=== PATIENT | female | born 1975 | race Caucasian/White ===

== ENCOUNTER 2017-08-15 02:14 | Emergency (ER) | payer BC, SELFPAY ==
[2017-08-15 02:16] VITALS: BP 148/88; PULSE 92; RESP 15; TEMP 36.6; O2SAT 100; BMI 46.7
--- NOTE | 2017-08-15 02:49 | EKG12_ITS ---
Test Reason : ABDOMINAL PAIN Blood Pressure : / mmHG Vent. Rate : 079 BPM Atrial Rate : 079 BPM P-R Int : 132 ms QRS Dur : 094 ms QT Int : 382 ms P-R-T Axes : -03 024 039 degrees QTc Int : 438 ms Normal sinus rhythm Inferior infarct , age undetermined Abnormal ECG Reconfirmed by XOCHILT CHANG, OUSMANE ([id number]), non linear editor BRETT LEWIS ([id number]) on 08/18/2017 1:50:15 PM Referred By: DR AZIDI Confirmed By:OUSMANE LEMON MD
--- NOTE | 2017-08-15 02:50 | ED.VISSUMM ---
- ER Visit Summary Date of Service: 08/15/17 Chief Complaint: Upper abdominal pain History of Present Illness: The patient is a 41 F past medical history of sleep apnea for which she wears BiPAP and pseudotumor. Previously had a brain shunt but then that since had that removed. Patient states the last 4 days or so turning Tuesday morning she has had gradual intermittent epigastric upper abdominal pain. Associated nausea but no vomiting. No diarrhea, constipation or melena. No fever. No dysuria. No vaginal bleeding or discharge. She still has both her gallbladder and appendix. She denies any trauma. States the pains been intermittent. Nothing specifically makes it better or worse. No prior history of pain like this before. No significant weight change recently. She denies any chest pain or exertional chest pain or exertional shortness of breath. Physical Examination: Well-appearing middle-age female vital signs are stable afebrile. Pulse ox 100% on room air no signs of hypoxia. HEENT exam unremarkable. Moist mucous membranes. Neck nontender no lymphadenopathy. Lungs clear to auscultation bilaterally. Heart regular rate and rhythm no murmur. Chest wall nontender. Abdomen is soft mild midepigastric tenderness. No rebound or guarding. No rigidity. No hernias or masses. Nondistended. Soft positive bowel sounds. No Ramirez sign. No specific right upper quadrant or McBurney's point tenderness. No Ramirez sign. Moving all 4 extremities. Neurovascularly intact. Calves nontender without edema or cords. Back exam nontender. Neurologically she is awake and alert without focal motor deficits. Test Results: CBC shows a white count of 10 H&H 10.5 and 33 with no prior hemoglobins available for comparison. Electrolytes unremarkable normal BUN and creatinine and gap. Liver enzymes normal. Lipase normal 140. Troponin normal. 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 However she has no cardiac history and had a negative troponin tonight. CT abdomen and pelvis done with IV contrast only shows one single solitary gallstone. There is also a left renal stone. And a 6.3 cm right adnexal mass versus cyst. I discussed all these test results with the patient and she will follow-up with her [employer]INER [facility] here at [place] for further evaluation of a potential right adnexal mass or cyst. Emergency Department Course and Treatment: Patient was nondescript abdominal pain. She does not want anything currently for pain or nausea. Treatment Plan: On repeat exam patient is doing well at 0602. She was given 1 dose of morphine and Zofran. Her pain is resolved. She will be discharged home with follow-up with Dr. Bubba Munson of the [facility] for further evaluation of this gallstone and abdominal pain. Follow-up with her [facility] SH[employer] DOG TRAINER for further evaluation of the right adnexal cyst or mass. Disposition: Discharge Impression: Acute abdominal pain Incidental finding of single solitary gallstone on CAT scan. Incidental finding of right adnexal cyst or mass which will need further evaluation. This note was generated with [employer] dictation software. It may contain incorrect words, spelling, and punctuation that were not noted in review of the chart prior to signing ED Disposition - Plan for ED Patient: Chief Complaint: Abd Pain Referrals: Taty Wong MD [Primary Care Provider] -
--- NOTE | 2017-08-15 02:53 | ED.DCSUM_ITS ---
- ER Visit Summary Date of Service: 08/15/17 Chief Complaint: Upper abdominal pain History of Present Illness: The patient is a 41 F past medical history of sleep apnea for which she wears BiPAP and pseudotumor. Previously had a brain shunt but then that since had that removed. Patient states the last 4 days or so turning Tuesday morning she has had gradual intermittent epigastric upper abdominal pain. Associated nausea but no vomiting. No diarrhea, constipation or melena. No fever. No dysuria. No vaginal bleeding or discharge. She still has both her gallbladder and appendix. She denies any trauma. States the pains been intermittent. Nothing specifically makes it better or worse. No prior history of pain like this before. No significant weight change recently. She denies any chest pain or exertional chest pain or exertional shortness of breath. Physical Examination: Well-appearing middle-age female vital signs are stable afebrile. Pulse ox 100% on room air no signs of hypoxia. HEENT exam unremarkable. Moist mucous membranes. Neck nontender no lymphadenopathy. Lungs clear to auscultation bilaterally. Heart regular rate and rhythm no murmur. Chest wall nontender. Abdomen is soft mild midepigastric tenderness. No rebound or guarding. No rigidity. No hernias or masses. Nondistended. Soft positive bowel sounds. No Ramirez sign. No specific right upper quadrant or McBurney's point tenderness. No Ramirez sign. Moving all 4 extremities. Neurovascularly intact. Calves nontender without edema or cords. Back exam nontender. Neurologically she is awake and alert without focal motor deficits. Test Results: CBC shows a white count of 10 H&H 10.5 and 33 with no prior hemoglobins available for comparison. Electrolytes unremarkable normal BUN and creatinine and gap. Liver enzymes normal. Lipase normal 140. Troponin normal. 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 However she has no cardiac history and had a negative troponin tonight. CT abdomen and pelvis done with IV contrast only shows one single solitary gallstone. There is also a left renal stone. And a 6.3 cm right adnexal mass versus cyst. I discussed all these test results with the patient and she will follow-up with her [employer] SUPERVISOR [facility] here at [place] for further evaluation of a potential right adnexal mass or cyst. Emergency Department Course and Treatment: Patient was nondescript abdominal pain. She does not want anything currently for pain or nausea. Treatment Plan: On repeat exam patient is doing well at 0602. She was given 1 dose of morphine and Zofran. Her pain is resolved. She will be discharged home with follow-up with Dr. Bubba Munson of the [facility] for further evaluation of this gallstone and abdominal pain. Follow-up with her [facility] GLAZIER SUPERVISOR for further evaluation of the right adnexal cyst or mass. Disposition: Discharge Impression: Acute abdominal pain Incidental finding of single solitary gallstone on CAT scan. Incidental finding of right adnexal cyst or mass which will need further evaluation. This note was generated with [employer] dictation software. It may contain incorrect words, spelling, and punctuation that were not noted in review of the chart prior to signing ED Disposition - Plan for ED Patient: Chief Complaint: Abd Pain Referrals: Taty Wong MD [Primary Care Provider] -
--- NOTE | 2017-08-15 02:53 | NURSING ---
NO OLD EKG'S IN MUSE
[2017-08-15 03:20] LABS: Absolute Lymphocyte Count 2.38 X10^3/ul (0.83-4.51); Absolute Neutrophil Count 7.5 X10^3/uL (2.0-7.7); Basophil# 0.02 X10^3/uL; Basophil% 0.2 % (0-1); Eosinophil# 0.14 X10^3/uL; Eosinophils% 1.3 % (0-5); Hematocrit 33.5 % (37-47); Hemoglobin 10.5 g/dl (12.0-15.0); Lymphocyte # 2.38 X10^3/ul (4.0); Lymphocyte % 21.9 % (19-41); Mean Corp Hgb Conc 31.3 g/gl (32-36); Mean Corpuscular Hgb 24.8 pg (27.0-32.0); Mean Corpuscular Volume 79.2 fL (81-99); Monocyte% 7.4 % (0-10); Neutrophil # 7.52 X10^3/uL (2.7-7.7); Platelet Count 345 K/mm3 (150-450); RBC Distribution Width CV 18.2 % (11.6-14.6); RBC Distribution Width SD 51.2 fl (35.1-43.9); Red Blood Count 4.23 M/mm3 (4.2-5.4); White Blood Count 10.9 K/mm3 (4.4-11.0)
[2017-08-15 03:22] LABS: POSITIVE COUNT NO; POSITIVE DIFFERENTIAL NO; POSITIVE MORPHOLOGY NO
[2017-08-15 03:36] LABS: AST(SGOT) 8 U/L (15-37); Alanine Aminotransfer ALT/SGPT 24 U/L (13-56); Albumin, Serum 3.1 g/dL (3.2-5.0); Alkaline Phosphatase 76 U/L (45-117); Anion Gap 8 (5-15); BUN 12 mg/dL (7-18); BUN/Creat Ratio 18.3 RATIO (10-20); Bilirubin, Direct 0.09 mg/dL (0.00-0.30); Calcium,Total 8.1 mg/dL (8.5-10.1); Chloride 109 mmol/L (98-107); Creatinine, Serum 0.66 mg/dL (0.55-1.02); EST Glomerular Filtration Rate 106 mL/min (>60); Est Glom Filt Rate - Afr Amer 128 mL/min (>60); Globulin 3.6 g/dL (2.2-4.2); Glucose 121 mg/dL (74-106); Lipase 140 U/L (73-393); Potassium 3.5 mmol/L (3.5-5.1); Protein, Total 6.7 g/dL (6.4-8.2); Sodium Level 140 mmol/L (136-145)
[2017-08-15 04:15] VITALS: PULSE 98; RESP 16
--- NOTE | 2017-08-15 04:26 | CT_ITS ---
STUDY: CT ABDOMEN AND PELVIS WITH CONTRAST REASON FOR EXAM: Female, 41 years old. Mid abdominal pain with nausea 3 days. 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 RADIATION DOSAGE (If Supplied By Facility): CTDIvol = ( 17.07 ) mGy, DLP = ( 1388.35 ) mGycm TECHNIQUE: Transaxial images were obtained from the dome of the diaphragm to the symphysis pubis without oral contrast. 100ML ml of Isovue 300 contrast was administered. Sagittal and coronal images were reconstructed. Individualized dose optimization techniques were used for this CT. COMPARISON: None. FINDINGS: The visualized lung bases are unremarkable. The visualized portions of the heart are within normal limits. Normal liver. There is a 0.8 cm solitary gallstone. Normal spleen. Normal pancreas. Normal bilateral adrenal glands. Normal right kidney. Multiple nonobstructing inferior pole left renal calculi the largest measuring 0.5 cm. Normal visualized stomach. Normal small intestine. Normal colon. It is possible the appendix is seen on coronal image 64 with the distal aspect of the appendix adjacent to the right adnexal mass. Several subcentimeter lymph nodes right lower quadrant. Terminal ileum is normal. Normal abdominal aorta. Normal inferior vena cava. Normal retroperitoneum. No intra-abdominal free air. Normal urinary bladder. Uterus is grossly normal. In the region of the right adnexa is a 6.3 x 3.3 x 4.0 cm mass which has an attenuation varying from 11-28 Hounsfield units, coronal image 60 and axial image 13. Within the mass is a 1.7 cm cyst attenuation 7 Hounsfield units sagittal image 78. Normal abdominal wall. Normal osseous structures. CT/Abdomen/Pelvis W IV Cont ONLY IMPRESSION: Findings probably represent a 6.3 cm right adnexal mass containing a cyst. Recommend correlation with test. This is probably a right ovarian mass or an atypical ovarian cyst. Recommend correlation with pelvic ultrasound. The appendix is not definitively identified. The findings probably do not represent acute appendicitis although it is a possibility. Small nonobstructing left renal calculi. Minimal cholelithiasis. Electronically Signed: Abner Young MD at 5:38 EDT , Service support ,
[2017-08-15] MEDS: Ondansetron 4 MG/2 ML Vial IV (04:32)
[2017-08-15] MEDS: 0.9% Normal Saline 1,000 ML 999 ML IV (04:32)
[2017-08-15] MEDS: Morphine 4 MG/ML Syringe 6 MG IV (04:32)
--- NOTE | 2017-08-15 06:06 | ED.DEP ---
ED Disposition - Plan for ED Patient: Disposition: Home or Assisted Living Chief Complaint: Abd Pain Instructions: ED Abdominal Pain Unkn Cause Referrals: Taty Wong MD [Primary Care Provider] - As Needed Terry Armenta MD [STAFF PHYSICIAN] - As soon as possible Mansi Oliva MD [STAFF PHYSICIAN] - As soon as possible Additional Instructions: Call and follow-up with your [facility] [employer] WORK[employer] for further evaluation of your right adnexal cyst. The abdominal pain over the last several days may or may not have been caused by a gallstone seen on your CAT scan. Follow-up with Dr. Bubba Armenta general surgeon for the [facility] in [place] for further evaluation of that. Tylenol Motrin for pain. Return to ER if you are feeling worse.
--- NOTE | 2017-08-15 06:09 | DCINST.ED_ITS ---
ED Disposition - Plan for ED Patient: Disposition: Home or Assisted Living Chief Complaint: Abd Pain Instructions: ED Abdominal Pain Unkn Cause Referrals: Taty Wong MD [Primary Care Provider] - As Needed Terry Armenta MD [STAFF PHYSICIAN] - As soon as possible Mansi Oliva MD [STAFF PHYSICIAN] - As soon as possible Additional Instructions: Call and follow-up with your [facility] [employer] HAND for further evaluation of your right adnexal cyst. The abdominal pain over the last several days may or may not have been caused by a gallstone seen on your CAT scan. Follow-up with Dr. Bubba Armenta general surgeon for the [facility] in [place] for further evaluation of that. Tylenol Motrin for pain. Return to ER if you are feeling worse.
[2017-08-15 06:11] LABS: Pregnancy, Serum, hCG Quali. NEGATIVE Negative (0-9 Nonpreg)
[2017-08-15 06:27] VITALS: PULSE 72; RESP 16; O2SAT 98
== END 2017-08-15 06:28 | disposition home or self-care (01) ==
PROVIDERS: Emergency Provider Emergency Medicine; Family Provider Internal Medicine; PCP Internal Medicine
DX: R10.10 Upper abdominal pain, unspecified (principal); K80.20 Calculus of gallbladder without cholecystitis without obstruction; R22.9 Localized swelling, mass and lump, unspecified; G47.30 Sleep apnea, unspecified
CPT/HCPCS: 74177; 80048; 80076; 83690; 84484; 84703; 85025; 93005; 96361; 96374; 96375; 99283; J7030; Q9967; A4216; J2405